=== PATIENT | female | born 1990 | race Caucasian/White ===

== ENCOUNTER → 2018-05-19 10:55 | Outpatient (CLI) | payer BC, OTHER, SELFPAY ==
[2018-05-19 17:06] LABS: Chlamydia Trachomatis by PCR Negative (Negative); Neisserai gonorrhoeae by PCR Negative (Negative); Probe Check PASS; Sample Adequacy Control PASS; Specimen Processing Control PASS
[2018-05-26 13:24] LABS: HPV HC, High Risk Positive (Negative); HPV Reflexed? YES, CHARGE PATIENT
== END ==
PROVIDERS: Visit Provider Obstetrics & Gynecology
DX: Z12.4 Encounter for screening for malignant neoplasm of cervix (principal); Z11.3 Encounter for screening for infections with a predominantly sexual mode of transmission
CPT/HCPCS: 87491; 87591; 87624; 88175; G0145

== ENCOUNTER → 2018-11-02 17:35 | Outpatient (CLI) | payer BC, SELFPAY ==
[2018-11-06 10:46] LABS: HPV Reflexed? NOT INDICATED
== END ==
PROVIDERS: Referring Provider Obstetrics & Gynecology; Visit Provider Obstetrics & Gynecology
DX: R87.810 Cervical high risk human papillomavirus (HPV) DNA test positive (principal)
CPT/HCPCS: 88175; G0145